=== PATIENT | male | born 1940 | race Caucasian/White ===

== ENCOUNTER 2018-09-24 18:41 | Observation (INO) ==
--- NOTE | 2018-09-24 19:20 | Emergency Department Note ---
Disposition Clinical Impression: Swelling of lower extremity, Shortness of breath Chest pain Qualifiers: Chest pain type: unspecified Qualified Code(s): R07.9 - Chest pain, unspecified Afib Qualifiers: Atrial fibrillation type: chronic Qualified Code(s): I48.2 - Chronic atrial fibrillation Disposition: Admitted As Inpatient Condition: Fair Referrals: Nayan Lawson DO [Primary Care Provider] - Forms: ED Satisfaction Letter Time of Disposition: 22:31 SOB HPI - General Chief Complaint: ED Shortness of Breath/Dyspnea Stated Complaint: Weakness Time Seen by Provider: 09/24/18 18:51 Source: EMS Limitations: no limitations - History of Present Illness Floyd is a 78 y/o male pmh of afib, HTN, and dementia who presented from home with weakness, nausea, and chest pain. This morning, began complaining of chest pain and SOB with standing. He was unable to describe chest pain, and does not remember having it but his states that he said he was having chest pain when he was walking. Admits to associated weakness in his legs, palpitations, and nausea throughout the day. Denies associated sweating, arm pain, syncope, dysuria. Over the past week he has had worsening of leg swelling bilaterally,right worst the left. He denies leg pain. His dementia has progressively worsened but no worsening of confusion acutely. He has been having episodes of confusion for the last couple of weeks. He has an appointment with the neurologist. Currently not complaining of any chest pain or SOB. No recent illnesses. Most of history was obtained from his . Patient was A&O x 2, oriented to self and place but unsure of month and why he is at the hospital. - Related Data Home oxygen amount: none Home Medications Medication Instructions Recorded Confirmed Diltiazem CD (24hr) [Cardizem CD] 120 mg PO DAILY 12/02/16 12/02/16 Finasteride [Proscar] 5 mg PO DAILY 12/02/16 12/02/16 Furosemide [Lasix] 40 mg PO HS 12/02/16 12/02/16 Lisinopril [Zestril] 10 mg PO DAILY 12/02/16 12/02/16 Warfarin Sodium [Coumadin] 6 mg PO SUMOTUWEFRSA 12/02/16 12/02/16 Warfarin [Coumadin] 3 mg PO 12/02/16 12/02/16 Allergies Allergy/AdvReac Type Severity Reaction Status Date / Time No Known Allergies Allergy Verified 03/07/18 16:09 All systems ED: reviewed and negative except as stated. Review of Systems: As Per HPI Constitutional: Reports: weakness. Denies: fever, chills Eyes: Denies: eye pain, eye discharge ENT ED: Denies: ear pain, throat pain Cardiovascular: Reports: chest pain, palpitations, dyspnea on exertion, edema. Denies: syncope Respiratory: Reports: dyspnea. Denies: wheezes Gastrointestinal: Reports: nausea. Denies: abdominal pain, vomiting Genitourinary: Denies: urgency, dysuria, frequency Integumentary: Denies: rash Neurological: Reports: confusion. Denies: numbness, paresthesias Past Medical History - Past Medical History Attestation: Yes The following information was validated with the patient. Source: old records reviewed, obtained from family Medical history: Reports: atrial fibrillation, cancer, DVT, hypertension, other Psychiatric history: Reports: no psych history - Social History Smoking Status: Never smoker Smokeless Tobacco Status: No Alcohol use: Reports: none Drug use: Reports: none Physical Exam Constitutional: Alert, in no acute distress, A&O x 2 Head: Normocephalic, atraumatic Heart: irregular rhythm, regular rate, no murmurs Lungs: Clear to auscultation, no wheezes, rales, or rhonchi Abdomen: Soft, nondistended, nontender, no guarding or rigidity. Extremities: bilateral non-pitting edema, venous status skin color changes of velasco of anterior compartment of legs bilaterally, radial pulse +2/4, capillary refill <2sec. Skin: Skin warm and dry, no lesions, no rashes, no jaundice Neurologic: Cranial nerves II through XII grossly intact, strength 5/5 in all extremities, staff nuclear weapons officer strength 5/5 bilaterally, answering most questions appropriately Psych: Cooperative with exam, good eye contact, cognitive function intact, speech clear, thought process logical, and goal directed - General Limitations: no limitations General appearance: alert Course Course Narrative: Patient is placed on cardiac monitoring which showed A. fib with rate control. EKG showed no ST elevation. Physical exam showed right calf 3 cm greater than left. Bilateral venous Dopplers were ordered. Bilateral lower extremity venous duplex appears to be negative fro DVT and SVT. Chest x-ray showed enlarged cardiac silhouette which could be due to cardiomegaly or pericardial effusion. Bedside US of heart showed small pericardial effusion, no tamponade. Due to episodes of confusion UA was ordered which was normal. BMP and CBC were normal. BNP was 263. d-dimer and troponin was negative. INR 2.6 and within theraputic range for afib on coumadin. Patient's vitals were normal throughout ED stay except for slightly elevated blood pressure. Patient was admitted to the hospital for ACS r/o. Patient was accepted by Dr. Gibbs. Vital Signs Temperature 98.5 F 09/24/18 19:11 Pulse Rate 70 09/24/18 19:11 Respiratory Rate 18 09/24/18 19:11 Blood Pressure 171/94 09/24/18 19:11 O2 Sat by Pulse Oximetry 97 09/24/18 19:11 Temperature 98.5 F 09/24/18 19:11 Pulse Rate 77 09/24/18 19:11 Respiratory Rate 18 09/24/18 19:11 Blood Pressure 171/94 09/24/18 19:11 O2 Sat by Pulse Oximetry 97 09/24/18 19:11 Oxygen Delivery Oxygen Delivery Room Air Shortness of Breath/Dyspnea - MDM Narrative Medical decision making narrative: Due to chest pain and shortness of breath with previous history of DVT, we will need to rule out NSTEMI, PE, DVT, afib RVR, CHF exacerbation. EKG did not show ST elevation. D-dimer was negative and bilateral doppler negative therefore less likely PE as patient has had no SOB requiring oxygen and heart rate has also been normal. Due to palpitations, nausea, and hx of afib RVR, patient might have been going in and out of a fib RVR earlier but is currently rate controlled. No cardiac tamponade see on US. Less likely due to CHF as patient's BNP was only 263. Unable to r/o ACS. - Medical Records Medical records reviewed: Yes I reviewed the patient's medical records. - Lab Data Lab results reviewed: Yes I reviewed the patient's lab results. Result diagrams: 09/24/18 19:30 09/24/18 19:30 Lab Results 09/24/18 09/24/18 09/24/18 Range/Units 19:30 19:30 19:31 WBC 6.4 (4.3-11.1) K/mcL RBC 4.53 (4.19-5.50) M/mcL Hgb 13.0 (12.9-16.9) g/dL Hct 39.7 (37.5-50.1) % MCV 87.6 (83.0-100.0) fL MCH 28.7 (28.0-33.3) pg MCHC 32.7 (31.6-35.5) g/dL RDW 14.2 (11.5-14.5) % Plt Count 176 (140-400) K/mcL MPV 9.4 (9.4-12.4) fL Immature Gran % 0.2 (0-4) % Seg Neutrophils % 69.1 % Lymphocytes % 19.1 % Monocytes % 11.0 % Eosinophils % 0.3 % Basophils % 0.3 % Neutrophils # 4.4 (1.6-8.9) K/mcL Lymphocytes # 1.2 (0.6-4.6) K/mcL Monocytes # 0.7 (0.0-1.3) K/mcL Eosinophils # 0.0 (0.0-0.6) K/mcL Basophils # 0.0 (0.0-0.2) K/mcL PT 28.8 H (9.4-12.1) Seconds INR 2.6 D-Dimer < 215 (0-500) ng/mLFEU Sodium 138 (136-145) mEq/L Potassium 4.3 (3.5-5.1) mEq/L Chloride 102 (98-107) mEq/L Carbon Dioxide 28 (23-29) mEq/L BUN 20 (8-23) mg/dL Creatinine 0.74 (0.70-1.30) mg/dL Est GFR ( Amer) > 60 (> 60) Est GFR (Non-Af Amer) > 60 (> 60) BUN/Creatinine Ratio 27 H (6-26) Glucose 105 (70-105) mg/dL Calculated Osmolality 289 (280-300) Calcium 9.8 (8.6-10.3) mg/dL Troponin I < 0.03 (< 0.04) ng/mL B-Natriuretic Peptide (Less than 100) pg/mL Urine Color (Yellow) Urine Clarity (Clear) Urine pH (5.0-8.0) pH Units Ur Specific [place] (1.010-1.025) Urine Protein (Neg-Trace) mg/dL Urine Glucose (UA) (Normal) mg/dL Urine Ketones (Negative) mg/dL Urine Blood (Negative) Urine Nitrite (Negative) Urine Bilirubin (Negative) Urine Urobilinogen (Normal) mg/dL Ur Leukocyte Esterase (Negative) Urine Microscopic RBC (0-3) per hpf Urine Microscopic WBC (0-3) per hpf Ur Squamous Epith Cells (None-Few) per lpf Urine Bacteria (None-Few) per hpf Hyaline Casts (None-Few) per lpf Ur Culture Indicated? (NO) 09/24/18 09/24/18 Range/Units 19:38 19:38 WBC (4.3-11.1) K/mcL RBC (4.19-5.50) M/mcL Hgb (12.9-16.9) g/dL Hct (37.5-50.1) % MCV (83.0-100.0) fL MCH (28.0-33.3) pg MCHC (31.6-35.5) g/dL RDW (11.5-14.5) % Plt Count (140-400) K/mcL MPV (9.4-12.4) fL Immature Gran % (0-4) % Seg Neutrophils % % Lymphocytes % % Monocytes % % Eosinophils % % Basophils % % Neutrophils # (1.6-8.9) K/mcL Lymphocytes # (0.6-4.6) K/mcL Monocytes # (0.0-1.3) K/mcL Eosinophils # (0.0-0.6) K/mcL Basophils # (0.0-0.2) K/mcL PT (9.4-12.1) Seconds INR D-Dimer (0-500) ng/mLFEU Sodium (136-145) mEq/L Potassium (3.5-5.1) mEq/L Chloride (98-107) mEq/L Carbon Dioxide (23-29) mEq/L BUN (8-23) mg/dL Creatinine (0.70-1.30) mg/dL Est GFR ( Amer) (> 60) Est GFR (Non-Af Amer) (> 60) BUN/Creatinine Ratio (6-26) Glucose (70-105) mg/dL Calculated Osmolality (280-300) Calcium (8.6-10.3) mg/dL Troponin I (< 0.04) ng/mL B-Natriuretic Peptide 263 H (Less than 100) pg/mL Urine Color Yellow (Yellow) Urine Clarity Clear (Clear) Urine pH 6.0 (5.0-8.0) pH Units Ur Specific [place] 1.007 L (1.010-1.025) Urine Protein Negative (Neg-Trace) mg/dL Urine Glucose (UA) Normal (Normal) mg/dL Urine Ketones Negative (Negative) mg/dL Urine Blood Trace H (Negative) Urine Nitrite Negative (Negative) Urine Bilirubin Negative (Negative) Urine Urobilinogen Normal (Normal) mg/dL Ur Leukocyte Esterase Negative (Negative) Urine Microscopic RBC 0-3 (0-3) per hpf Urine Microscopic WBC 0-3 (0-3) per hpf Ur Squamous Epith Cells Moderate H (None-Few) per lpf Urine Bacteria None Seen (None-Few) per hpf Hyaline Casts None Seen (None-Few) per lpf Ur Culture Indicated? NO (NO) - Radiology Data Radiology results reviewed: Yes I reviewed the patient's radiology results. - EKG Data EKG attestation: Yes I reviewed and interpreted this EKG. EKG results narrative: EKG showed afib with a rate of 81bpm, QRS 0.122s, QTc 464, IN 0.078s. No ST elevation present.
[2018-09-24 19:42] LABS: Basophils % 0.3 %; Eosinophils % 0.3 %; Hematocrit 39.7 % (37.5-50.1); Immature Granulocytes % 0.2 % (0-4); Lymphocytes # 1.2 K/mcL (0.6-4.6); Lymphocytes % 19.1 %; Mean Corpuscular HGB Conc 32.7 g/dL (31.6-35.5); Mean Corpuscular Hemoglobin 28.7 pg (28.0-33.3); Mean Corpuscular Volume 87.6 fL (83.0-100.0); Mean Platelet Volume 9.4 fL (9.4-12.4); Monocytes # 0.7 K/mcL (0.0-1.3); Neutrophils # 4.4 K/mcL (1.6-8.9); Platelet Count 176 K/mcL (140-400); Red Blood Count 4.53 M/mcL (4.19-5.50); Red Cell Distribution Width 14.2 % (11.5-14.5); Segmented Neutrophils % 69.1 %
[2018-09-24 19:47] LABS: Bilirubin,Urine Negative (Negative); Blood,Urine Trace (Negative); Clarity,Urine Clear (Clear); Color,Urine Yellow (Yellow); Glucose,Urine (UA) Normal (Normal); Ketones,Urine Negative (Negative); Leukocyte Esterase,Urine Negative (Negative); Nitrite,Urine Negative (Negative); Protein,Urine Negative (Neg-Trace); Specific Gravity,Urine 1.007 (1.010-1.025); Urobilinogen,Urine Normal (Normal)
[2018-09-24 19:50] LABS: INR 2.6; Prothrombin Time 28.8 Seconds (9.4-12.1)
[2018-09-24 19:50] LABS: Bacteria,Urine None Seen per hpf (None-Few); Hyaline Casts,Urine None Seen per lpf (None-Few); RBC,Urine 0-3 per hpf (0-3); Squamous Epithelial Cell,Urine Moderate per lpf (None-Few); WBC,Urine 0-3 per hpf (0-3)
[2018-09-24 20:02] LABS: BUN/Creatinine Ratio 27 (6-26); Blood Urea Nitrogen 20 mg/dL (8-23); Calcium 9.8 mg/dL (8.6-10.3); Carbon Dioxide 28 mEq/L (23-29); Chloride 102 mEq/L (98-107); Glucose 105 mg/dL (70-105); Osmolality,Calculated 289 (280-300); Potassium 4.3 mEq/L (3.5-5.1); Sodium 138 mEq/L (136-145); eGFR For Non-African Americans > 60 (> 60)
[2018-09-24 20:03] LABS: Troponin I < 0.03 ng/mL (< 0.04)
--- NOTE | 2018-09-24 20:04 | Emergency Department Note ---
Disposition Clinical Impression: Swelling of lower extremity Chest pain Qualifiers: Chest pain type: unspecified Qualified Code(s): R07.9 - Chest pain, unspecified Afib Qualifiers: Atrial fibrillation type: chronic Qualified Code(s): I48.2 - Chronic atrial fibrillation Disposition: Admitted As Inpatient Condition: Fair Referrals: Nayan Lawson DO [Primary Care Provider] - Forms: ED Satisfaction Letter General Adult HPI - General Chief complaint: ED Shortness of Breath/Dyspnea Stated complaint: Weakness Time Seen by Provider: 09/24/18 18:51 Source: EMS Limitations: no limitations - History of Present Illness Pain Scale: 0 - Related Data Home Medications Medication Instructions Recorded Confirmed Diltiazem CD (24hr) [Cardizem CD] 120 mg PO DAILY 12/02/16 12/02/16 Finasteride [Proscar] 5 mg PO DAILY 12/02/16 12/02/16 Furosemide [Lasix] 40 mg PO HS 12/02/16 12/02/16 Lisinopril [Zestril] 10 mg PO DAILY 12/02/16 12/02/16 Warfarin Sodium [Coumadin] 6 mg PO SUMOTUWEFRSA 12/02/16 12/02/16 Warfarin [Coumadin] 3 mg PO TH 12/02/16 12/02/16 Allergies Allergy/AdvReac Type Severity Reaction Status Date / Time No Known Allergies Allergy Verified 03/07/18 16:09 Past Medical History - Past Medical History Medical history: Reports: atrial fibrillation, cancer, DVT, hypertension, other Psychiatric history: Reports: no psych history - Social History Smoking Status: Never smoker Smokeless Tobacco Status: No Alcohol use: Reports: none Drug use: Reports: none Physical Exam - General Limitations: no limitations General appearance: alert Course Vital Signs Temperature 98.5 F 09/24/18 19:11 Pulse Rate 70 09/24/18 19:11 Respiratory Rate 18 09/24/18 19:11 Blood Pressure 171/94 09/24/18 19:11 O2 Sat by Pulse Oximetry 97 09/24/18 19:11 Temperature 98.5 F 09/24/18 19:11 Pulse Rate 77 09/24/18 19:11 Respiratory Rate 18 09/24/18 19:11 Blood Pressure 171/94 09/24/18 19:11 O2 Sat by Pulse Oximetry 97 09/24/18 19:11 Oxygen Delivery Oxygen Delivery Room Air Medical Decision Making - Lab Data Result diagrams: 09/24/18 19:30 09/24/18 19:30 Lab Results 09/24/18 09/24/18 09/24/18 Range/Units 19:30 19:30 19:31 WBC 6.4 (4.3-11.1) K/mcL RBC 4.53 (4.19-5.50) M/mcL Hgb 13.0 (12.9-16.9) g/dL Hct 39.7 (37.5-50.1) % MCV 87.6 (83.0-100.0) fL MCH 28.7 (28.0-33.3) pg MCHC 32.7 (31.6-35.5) g/dL RDW 14.2 (11.5-14.5) % Plt Count 176 (140-400) K/mcL MPV 9.4 (9.4-12.4) fL Immature Gran % 0.2 (0-4) % Seg Neutrophils % 69.1 % Lymphocytes % 19.1 % Monocytes % 11.0 % Eosinophils % 0.3 % Basophils % 0.3 % Neutrophils # 4.4 (1.6-8.9) K/mcL Lymphocytes # 1.2 (0.6-4.6) K/mcL Monocytes # 0.7 (0.0-1.3) K/mcL Eosinophils # 0.0 (0.0-0.6) K/mcL Basophils # 0.0 (0.0-0.2) K/mcL PT 28.8 H (9.4-12.1) Seconds INR 2.6 D-Dimer < 215 (0-500) ng/mLFEU Sodium 138 (136-145) mEq/L Potassium 4.3 (3.5-5.1) mEq/L Chloride 102 (98-107) mEq/L Carbon Dioxide 28 (23-29) mEq/L BUN 20 (8-23) mg/dL Creatinine 0.74 (0.70-1.30) mg/dL Est GFR ( Amer) > 60 (> 60) Est GFR (Non-Af Amer) > 60 (> 60) BUN/Creatinine Ratio 27 H (6-26) Glucose 105 (70-105) mg/dL Calculated Osmolality 289 (280-300) Calcium 9.8 (8.6-10.3) mg/dL Troponin I < 0.03 (< 0.04) ng/mL B-Natriuretic Peptide (Less than 100) pg/mL Urine Color (Yellow) Urine Clarity (Clear) Urine pH (5.0-8.0) pH Units Ur Specific [place] (1.010-1.025) Urine Protein (Neg-Trace) mg/dL Urine Glucose (UA) (Normal) mg/dL Urine Ketones (Negative) mg/dL Urine Blood (Negative) Urine Nitrite (Negative) Urine Bilirubin (Negative) Urine Urobilinogen (Normal) mg/dL Ur Leukocyte Esterase (Negative) Urine Microscopic RBC (0-3) per hpf Urine Microscopic WBC (0-3) per hpf Ur Squamous Epith Cells (None-Few) per lpf Urine Bacteria (None-Few) per hpf Hyaline Casts (None-Few) per lpf Ur Culture Indicated? (NO) 09/24/18 09/24/18 Range/Units 19:38 19:38 WBC (4.3-11.1) K/mcL RBC (4.19-5.50) M/mcL Hgb (12.9-16.9) g/dL Hct (37.5-50.1) % MCV (83.0-100.0) fL MCH (28.0-33.3) pg MCHC (31.6-35.5) g/dL RDW (11.5-14.5) % Plt Count (140-400) K/mcL MPV (9.4-12.4) fL Immature Gran % (0-4) % Seg Neutrophils % % Lymphocytes % % Monocytes % % Eosinophils % % Basophils % % Neutrophils # (1.6-8.9) K/mcL Lymphocytes # (0.6-4.6) K/mcL Monocytes # (0.0-1.3) K/mcL Eosinophils # (0.0-0.6) K/mcL Basophils # (0.0-0.2) K/mcL PT (9.4-12.1) Seconds INR D-Dimer (0-500) ng/mLFEU Sodium (136-145) mEq/L Potassium (3.5-5.1) mEq/L Chloride (98-107) mEq/L Carbon Dioxide (23-29) mEq/L BUN (8-23) mg/dL Creatinine (0.70-1.30) mg/dL Est GFR ( Amer) (> 60) Est GFR (Non-Af Amer) (> 60) BUN/Creatinine Ratio (6-26) Glucose (70-105) mg/dL Calculated Osmolality (280-300) Calcium (8.6-10.3) mg/dL Troponin I (< 0.04) ng/mL B-Natriuretic Peptide 263 H (Less than 100) pg/mL Urine Color Yellow (Yellow) Urine Clarity Clear (Clear) Urine pH 6.0 (5.0-8.0) pH Units Ur Specific [place] 1.007 L (1.010-1.025) Urine Protein Negative (Neg-Trace) mg/dL Urine Glucose (UA) Normal (Normal) mg/dL Urine Ketones Negative (Negative) mg/dL Urine Blood Trace H (Negative) Urine Nitrite Negative (Negative) Urine Bilirubin Negative (Negative) Urine Urobilinogen Normal (Normal) mg/dL Ur Leukocyte Esterase Negative (Negative) Urine Microscopic RBC 0-3 (0-3) per hpf Urine Microscopic WBC 0-3 (0-3) per hpf Ur Squamous Epith Cells Moderate H (None-Few) per lpf Urine Bacteria None Seen (None-Few) per hpf Hyaline Casts None Seen (None-Few) per lpf Ur Culture Indicated? NO (NO) Attestation Statement - Attestation Attestation: I examined this patient and my medical decision-making was reviewed with the SQU[employer] DANCE CALLER/PA/Advanced Practice Nurse/Resident Physician. I agree with the documented findings, disposition and treatment plan as described except to the extent set forth below. Patient presents for primary complaints of shortness of breath and weakness. This began today. Patient does have bilateral lower extremity swelling worse on the right which is chronic for both legs are more swollen than they usually are. He did have chest pain earlier but no chest pain at the present time. I did review the EKG which shows atrial fibrillation with a rate of 81 bpm and a wavy baseline/artifact but no acute ischemic change 2003 I did review the chest x-ray results and the x-ray read as showing a large heart however the BNP is not significantly elevated so for that reason I did a bedside ultrasound and did not see a small pericardial effusion but not pericardial tympanotomy. Formal echocardiogram can be done tomorrow. The patient currently does not have any dyspnea or any chest pain. Will be admitted to the hospital. D-dimer was negative. Initial troponin was negative.
[2018-09-24 20:36] LABS: D-Dimer < 215 ng/mLFEU (0-500)
[2018-09-24] MEDS: Aspirin Enteric Coated 81 MG Tablet PO SCH (22:38)
[2018-09-25] MEDS ORDERED: Naloxone 0.4 MG/ML INJ IVP PRN (00:05)
[2018-09-25] MEDS ORDERED: Nitroglycerin 0.4 MG TAB.SUBL SL PRN (00:07)
[2018-09-25 05:05] LABS: Hematocrit 39.5 % (37.5-50.1); Hemoglobin 12.7 g/dL (12.9-16.9); Mean Corpuscular HGB Conc 32.2 g/dL (31.6-35.5); Mean Corpuscular Hemoglobin 28.3 pg (28.0-33.3); Mean Corpuscular Volume 88.2 fL (83.0-100.0); Mean Platelet Volume 10.6 fL (9.4-12.4); Platelet Count 178 K/mcL (140-400); Red Blood Count 4.48 M/mcL (4.19-5.50)
[2018-09-25 05:20] LABS: BUN/Creatinine Ratio 25 (6-26); Blood Urea Nitrogen 18 mg/dL (8-23); Calcium 9.8 mg/dL (8.6-10.3); Carbon Dioxide 28 mEq/L (23-29); Chloride 105 mEq/L (98-107); Glucose 100 mg/dL (70-105); Osmolality,Calculated 290 (280-300); Potassium 3.7 mEq/L (3.5-5.1); Sodium 139 mEq/L (136-145); eGFR For Non-African Americans > 60 (> 60)
[2018-09-25 05:21] LABS: Troponin I < 0.03 ng/mL (< 0.04)
[2018-09-25] MEDS: Regadenoson 0.4 MG/5 ML SYRINGE IVP ONE ×2 (07:44→09:18)
[2018-09-25] MEDS ORDERED: Brinzolamide 1% 10 ML BOTTLE BOTH EYES SCH (09:00)
[2018-09-25] MEDS ORDERED: Finasteride 5 MG TABLET PO SCH (09:00)
[2018-09-25] MEDS ORDERED: Diltiazem CD (24hr) 120 MG CAPSULE PO SCH (09:00)
--- NOTE | 2018-09-25 09:17 | Internal Med History&Physical ---
Date of Encounter: 09/25/18 Time of Encounter: 03:00 Internal Medicine - H&P: HPI Chief complaint: Chest Pain/Weakness History of present illness: Mr. Barrientos is a 78 year old male with a past medical history of atrial fibrillation, hypertension and dementia who presented from home with a chief complaint of lower extremity weakness and chest pain. At the time of my as sessment patient was a poor historian and therefore much of the history was obtained from previous records. Per report, patient was unable to describe his chest pain however his stated that it typically occurs with ambulation. He is also reporting lower extremity weakness which has been ongoing since last year. Patient reportedly has been having episodes of confusion for the past couple weeks and has an appointment with neurology. Patient does have bilateral lower extremity swelling worse on the right which is chronic however, legs appear to be more swollen than usual. D-dimer was negative. Initial labs including troponin were unremarkable as well as EKG. Chest x-ray showed an en larged heart. No evidence of pericardial effusion on bedside ultrasound. The patient currently does not have any dyspnea or any chest pain. Past Med Surg Social Fam HX - Past Medical History Medical history: atrial fibrillation, cancer, DVT, hypertension, other Additional medical history: facial cancer (skin) Psychiatric history: no psych history - Past Surgical History Additional surgical history: prostate sx, wisdom teeth - Social History Smoking Status: Never smoker Smokeless Tobacco Status: No Alcohol use: none Drug use: none - Family History Mother Hx Family Cardiac Disorders: Yes (HTN) Internal Medicine - H&P: Meds Diltiazem CD (24hr) [Cardizem CD] 120 mg PO DAILY 12/02/16 [History] Finasteride [Proscar] 5 mg PO DAILY 12/02/16 [History] Furosemide [Lasix] 40 mg PO HS 12/02/16 [History] Lisinopril [Zestril] 10 mg PO DAILY 12/02/16 [History] Warfarin Sodium [Coumadin] 6 mg PO SUMOTUTHFRSA 12/02/16 [History] Warfarin [Coumadin] 3 mg PO WE 12/02/16 [History] Brinzolamide/Brimonidine Tart [Simbrinza 1%-0.2% Eye Drops] 1 drop BOTH EYES BID 09/24/18 [History] Donepezil [Aricept] 10 mg PO HS 09/24/18 [History] Travoprost [Travatan Z] 1 drop BOTH EYES QPM 09/24/18 [History] Aspirin Enteric Coated [Aspirin EC] 81 mg PO DAILY 30 Days #30 tablet. 09/25/18 [Rx] Allergy/AdvReac Type Severity Reaction Status Date / Time No Known Allergies Allergy Verified 03/07/18 16:09 All Systems PM: A 10-system review of systems was performed and is negative for pertinent findings except as documented above in the HPI. - Constitutional Constitutional: no chills, no fever(s), no night sweats - EENT Eyes: no change in vision, no discharge, no pain, no photophobia Ears: no ear discharge, no ear pain, no tinnitus Nose, mouth and throat: no dysphagia, no nasal discharge, no neck pain, no sore throat - Cardiovascular Cardiovascular ROS IM: no chest pain, no diaphoresis, no dyspnea, no lighth eadedness, no palpitations, no syncope - Respiratory Respiratory: no cough, no dyspnea, no wheezing, no excessive phlegm production - Gastrointestinal Gastrointestinal: no abdominal pain, no diarrhea, no hematemesis, no he matochezia, no melena, no nausea, no vomiting - Musculoskeletal Musculoskeletal ROS IM: no numbness, no tingling - Integumentary Integumentary IM: no rash, no unusual bruising - Neurological Neurological ROS: no confusion, no convulsions, no focal weakness, no numbness, no tingling, no tremor(s) - Hematologic/Lymphatic Hematologic/Lymphatic: no easy bruising - Constitutional Vitals: Temp Pulse Resp BP Pulse Ox 98.0 F 82 16 158/92 95 09/25/18 06:55 09/25/18 06:55 09/25/18 06:55 09/25/18 06:55 09/25/18 06:55 Exam: General: Alert and oriented 2 lying in bed in no acute distress Skin:Normal color, no rash, no lesions. HEENT:EOM, pupils equal, round and reactive. Cardiovascular:Normal S1 & S2, no rubs, murmurs or gallops. No JVD. Pulse re gular. Lungs:Normal breath sounds, no wheezes or crackles. Abdomen:Soft, non-tender, no rigidity. Extremities: Bilateral 1-2+ pitting edema up to the midshin. Right lower extremity greater in size and left. Neurological:Normal cognition and motor skills. Pulses:Carotid and radial pulses normal +2. Rest of the physical exam is non contributory Internal Med - H&P Results - Labs CBC & Chem 7: 09/25/18 04:15 09/25/18 04:15 Labs: Short CBC 09/24/18 09/25/18 Range/Units 19:30 04:15 WBC 6.4 5.3 (4.3-11.1) K/mcL Hgb 13.0 12.7 L (12.9-16.9) g/dL Hct 39.7 39.5 (37.5-50.1) % Plt Count 176 178 (140-400) K/mcL Neutrophils # 4.4 (1.6-8.9) K/mcL BMP 09/24/18 09/25/18 19:30 04:15 Sodium 138 139 Potassium 4.3 3.7 Chloride 102 105 Carbon Dioxide 28 28 BUN 20 18 Creatinine 0.74 0.71 Glucose 105 100 Calcium 9.8 9.8 Cardiac Enzymes 09/24/18 09/25/18 09/25/18 Range/Units 19:30 01:01 04:15 Troponin I < 0.03 < 0.03 < 0.03 (< 0.04) ng/mL Urine 09/24/18 Range/Units 19:38 Urine Color Yellow (Yellow) Urine Clarity Clear (Clear) Urine pH 6.0 (5.0-8.0) pH Units Ur Specific [place] 1.007 L (1.010-1.025) Urine Protein Negative (Neg-Trace) mg/dL Urine Glucose (UA) Normal (Normal) mg/dL - Impressions ITS Impressions Chest X-Ray 09/24/18 19:52 IMPRESSION: Enlarged cardiac silhouette which could be due to cardiomegaly or pericardial effusion. D/ / Dimitry Harrington MD / Dimitry Harrington MD Interpreting Provider: Dimitry Harrington MD - Assessment and plan (1) Weakness Status: Acute Assessment and plan: Patient reports several month history of weakness involving his lower extremities bilaterally. No evidence of focal findings on physical exam. Lower extremity muscle strength 4 out of 5 bilaterally. Likely secondary to deconditioning -PT OT (2) Chest pain Status: Acute Assessment and plan: Patient presents with chest pain on exertion. Patient is a poor historian and therefore history of patient's chest pain was difficult to obtain. Initial troponin and EKG were unremarkable. Patient has a history of atrial fibrillation and hypertension. Echo performed in 2016 showed ejection fraction of 55-60% with mild concentric left ventricular hypertrophy and indeterminate diastolic function. No active chest pain at this time. -We will trend troponin. -Obtain echocardiogram -Stress test in the morning - Qualifiers: Chest pain type: unspecified Qualified Code(s): R07.9 - Chest pain, unspecified (3) Swelling of lower extremity Status: Acute Assessment and plan: Bilateral lower extremity edema with 1-2+ edema bilaterally. Right lower ex tremity greater in size and left. Patient states that this is chronic. Patient had a negative d-dimer on labs. -We will obtain echocardiogram (4) Afib Status: Acute Assessment and plan: History of atrial fibrillation rate controlled on anticoagulation. Rate is controlled. INR within therapeutic range. -Continue warfarin and diltiazem Qualifiers: Atrial fibrillation type: chronic Qualified Code(s): I48.2 - Chronic atrial fibrillation (5) DVT prophylaxis Status: Acute Assessment and plan: Patient currently on warfarin - Time Spent With Patient Total time spent is greater than 50% in coordination of care (as documented) at patient's floor/unit and/or counseling patient:
[2018-09-25] MEDS ORDERED: *HR* LORazepam 2 MG/ML VIAL IVP ONE (09:44)
[2018-09-25] MEDS: Aspirin Enteric Coated 81 MG Tablet PO SCH (10:57)
[2018-09-25 11:01] LABS: Chol/HDL Ratio 2.5 (0-4.9); Cholesterol 149 mg/dL (< 200); HDL Cholesterol 60 mg/dL (40-59); LDL Cholesterol,Calculated 79 mg/dL (0-99); Triglycerides 49 mg/dL (< 150)
[2018-09-25 11:19] VITALS: BP 149/76
--- NOTE | 2018-09-25 11:42 | Internal Med Progress Note ---
Date of Encounter: 09/25/18 Time of Encounter: 10:00 - Subjective Interval history: Patient is A and O 1. Patient is accompanied by his . says his level of confusion is around baseline. Patient currently denies any chest pain, shortness of breath, weakness, nausea, vomiting, abdominal pain, palpitations, numbness or tingling. He also tests that the swelling in his legs has gone down a little compared to yesterday. - Constitutional Vitals: Temp Pulse Resp BP Pulse Ox 97.4 F L 66 16 149/76 96 09/25/18 11:18 09/25/18 11:18 09/25/18 11:18 09/25/18 11:18 09/25/18 11:18 General appearance: Present: A&O X 1, no acute distress, answers questions appropriately - Respiratory Respiratory exam: Present: CTAB. Absent: accessory muscle use, rales, rhonchi, wheezes - Cardiovascular Cardiovascular exam: Present: RRR, +S1, +S2. Absent: diastolic murmur, gallop, rubs, systolic murmur - GI/Abdominal GI/Abdominal exam: Present: normal bowel sounds, soft, no peritoneal signs. A bsent: distended, tenderness - Extremities Exam Extremities exam: Present: normal capillary refill, pedal edema (+2 B/L LE pitting edema), warm, radial pulses palpable and symmetrical. Absent: calf tenderness, cyanotic, tenderness Internal Medicine: Result - Labs CBC & Chem 7: 09/25/18 04:15 09/25/18 04:15 Labs: Short CBC 09/24/18 09/25/18 Range/Units 19:30 04:15 WBC 6.4 5.3 (4.3-11.1) K/mcL Hgb 13.0 12.7 L (12.9-16.9) g/dL Hct 39.7 39.5 (37.5-50.1) % Plt Count 176 178 (140-400) K/mcL Neutrophils # 4.4 (1.6-8.9) K/mcL BMP 09/24/18 09/25/18 19:30 04:15 Sodium 138 139 Potassium 4.3 3.7 Chloride 102 105 Carbon Dioxide 28 28 BUN 20 18 Creatinine 0.74 0.71 Glucose 105 100 Calcium 9.8 9.8 Cardiac Enzymes 09/24/18 09/25/18 09/25/18 Range/Units 19:30 01:01 04:15 Troponin I < 0.03 < 0.03 < 0.03 (< 0.04) ng/mL Urine 09/24/18 Range/Units 19:38 Urine Color Yellow (Yellow) Urine Clarity Clear (Clear) Urine pH 6.0 (5.0-8.0) pH Units Ur Specific [place] 1.007 L (1.010-1.025) Urine Protein Negative (Neg-Trace) mg/dL Urine Glucose (UA) Normal (Normal) mg/dL - ABG Interpretation ABG results: PT/INR, D-dimer PT 28.8 Seconds (9.4-12.1) H 09/24/18 19:31 D-Dimer < 215 ng/mLFEU (0-500) 09/24/18 19:31 - Impressions Impressions Chest X-Ray 09/24/18 19:52 IMPRESSION: Enlarged cardiac silhouette which could be due to cardiomegaly or pericardial effusion. D/ / Dimitry Harrington MD / Dimitry Harrington MD Interpreting Provider: Dimitry Harrington MD Echocardiogram 09/25/18 06:02 Impressions: LVEF 55%. Normal LV chamber size, wall thickness and function. Indeterminate diastolic function. Normal right ventricular structure and function. Severely bi-atrial enlargement. Mild aortic regurgitation. Borderline mild pulmonary hypertension. Estimated RVSP is 37 mmHg. Left Ventricular Wall Motion: Rest Echo Findings All wall segments showed normal motion. Findings: Study Quality * Technically sub-optimal due to poor echocardiographic windows. ECG Findings * Atrial fibrillation. Left Ventricle * LVEF 55%. * Normal LV chamber size, wall thickness and function. * Indeterminate diastolic function. Right Ventricle * Normal right ventricular structure and function. Left Atrium * Severely dilated left atrium. Right Atrium * Severely dilated right atrium. Aortic Valve * Aortic valve not well visualized. * Mild aortic regurgitation. * No aortic stenosis. Mitral Valve * Normal mitral valve structure and function. * No mitral stenosis. * Trace mitral regurgitation. Tricuspid Valve * Normal tricuspid valve structure and function. * Trace tricuspid regurgitation. * Borderline mild pulmonary hypertension. * Estimated RVSP is 37 mmHg. * Estimated RA pressure is presumed to be at least 5 mmHg. IVC not well visualized. Pulmonic Valve * Pulmonic valve not well visualized. Aorta * Normally sized aortic root. Pericardium * The pericardium appears normal. IVC * The IVC is not well evaluated. Pulmonary Artery * Pulmonary artery not well visualized. Consult Discharge Plan - Plan Referrals: Nayan Lawson DO [Primary Care Provider] -
--- NOTE | 2018-09-25 11:55 | Discharge Summary ---
<MiryamNikolai reyes - Last Filed: 09/25/18 11:47> Orders not resulted at time of discharge: Pending orders 09/25/18 06:01 NM eliza perf SPECT multi [NM] Routine Date of Encounter: 09/25/18 Time of Encounter: 10:00 - Discharge Diagnosis (1) Chest pain Priority: Primary Status: Acute Qualifiers: Chest pain type: unspecified Qualified Code(s): R07.9 - Chest pain, unspecified (2) Swelling of lower extremity Priority: Primary Status: Acute (3) Afib Priority: Primary Status: Acute Qualifiers: Atrial fibrillation type: chronic Qualified Code(s): I48.2 - Chronic atrial fibrillation (4) Weakness Priority: Secondary Status: Acute Hospital course: Mr. Barrientos is a 78 year old male with a past medical history of HIV fibrillation, hypertension, and dementia that presented on 09/24/18 for chest pain and weakness. Patient is a poor historian and much of his history was obtained from work records and his . He has issues of lower extremity edema. He has been getting episodes of slightly increased confusion for the past couple weeks. He does have an upcoming appointment with neurology. Patient is D-dimer test was negative. Troponins were negative x 2. HEART score of 5. His EKG was unremarkable. Chest x-ray showed an enlarged heart. No evidence of pericardial effusion on bedside ultrasound. His echocardiogram showed an ejection fraction of 55%. Also showed severely biatrial enlargement and mild aortic regurgitation. He does have borderline mild pulmonary hypertension. His renal function was normal. Hemoglobin was normal. White blood cell count was not within normal range. Patient is afebrile. His UA showed no signs of infection. A nuclear stress test was ordered which showed H her fibrillation with a right bundle branch block and nonspecific ST changes throughout the study. Pharmacologic ECG was nondiagnostic for ischemia. Patient had no chest pain during the stress test. Patient's heart rate has been rate controlled with diltiazem. He is on warfarin for his atrial fibrillation and his INR is within therapeutic range. His blood pressure is treated with lisinopril. He was put on Lasix for his lower extremity edema which seemed to improve (108 kg down to 106 kg weight). Patient was also put on baby aspirin for risk factors for coronary artery disease. When seen today patient was a and O 1, for which his says this is his baseline. He denied any chest pain, shortness of breath, weakness, nausea, vomiting, abdominal pain, palpitations, numbness or tingling. Patient will be discharged today. He will be sent home with his . Also discharge patient with month supply of aspirin which is recommended that he take due to his risk factors for CAD. Patient will need to follow-up with PCP within one week. Warned patient that if he expenses any chest pain, dizziness, lightheadedness, numbness or tingling, shortness of breath, increase in lower extremity swelling, or shortness of breath while laying down to report immediately to the ER. - Time Spent with Patient Total time spent providing and/or coordinating discharge services: Less than 30 minutes - Discharge Medications Prescriptions: RX: Aspirin Enteric Coated [Aspirin EC] 81 mg PO DAILY 30 Days #30 tablet.dr Denny Medications: RX: Diltiazem CD (24hr) [Cardizem CD] 120 mg PO DAILY 12/02/16 [History] RX: Finasteride [Proscar] 5 mg PO DAILY 12/02/16 [History] RX: Furosemide [Lasix] 40 mg PO HS 12/02/16 [History] RX: Lisinopril [Zestril] 10 mg PO DAILY 12/02/16 [History] RX: Warfarin Sodium [Coumadin] 6 mg PO SUMOTUTHFRSA 12/02/16 [History] RX: Warfarin [Coumadin] 3 mg PO WE 12/02/16 [History] RX: Brinzolamide/Brimonidine Tart [Simbrinza 1%-0.2% Eye Drops] 1 drop BOTH EYES BID 09/24/18 [History] RX: Donepezil [Aricept] 10 mg PO HS 09/24/18 [History] RX: Travoprost [Travatan Z] 1 drop BOTH EYES QPM 09/24/18 [History] RX: Aspirin Enteric Coated [Aspirin EC] 81 mg PO DAILY 30 Days #30 tablet. 09/25/18 [Rx] Allergies/Adverse Reactions: Allergy/AdvReac Type Severity Reaction Status Date / Time No Known Allergies Allergy Verified 03/07/18 16:09 Date of admission: 09/24/18 23:05 Primary care physician: Napoleon Lawson DO Consults: 09/25/18 09:15 Consult to Physical Therapy [CONS] Routine Comment: Evaluate, develop and implement POC Reason for Consult: Patient reports increased weakness in his lower extremities has been ongoing since last year. He does not a history of dementia. Does patient have active BEDREST order?: No Is patient medically & hemodynamically stable?: No Patient assessed for mobility or mobilized this visit?: No Discharging clinician: Nikolai March Anticipated date of discharge: 09/25/18 - Constitutional Vitals: Temp Pulse Resp BP Pulse Ox 97.4 F L 66 16 149/76 96 09/25/18 11:18 09/25/18 11:18 09/25/18 11:18 09/25/18 11:18 09/25/18 11:18 General appearance: Present: A&O X 1, no acute distress, answers questions appropriately - Respiratory Respiratory exam: Present: CTAB. Absent: accessory muscle use, rales, rhonchi, wheezes - Cardiovascular Cardiovascular exam: Present: irregular rhythm, +S1, +S2. Absent: diastolic murmur, gallop, rubs, systolic murmur - GI/Abdominal GI/Abdominal exam: Present: normal bowel sounds, soft, no peritoneal signs. Absent: distended, tenderness - Extremities Exam Extremities exam: Present: normal capillary refill, pedal edema (+2 B/L pitting edema), warm, radial pulses palpable and symmetrical. Absent: calf tenderness, cyanotic, tenderness - Patient Status Disposition: Home, Self-Care Condition: Fair Functional capacity at discharge: independent ambulation Overall status at discharge: patient is back to baseline - Discharge Instructions Instructions: Dementia (GEN) Follow Up With: Nayan Lawson DO [Primary Care Provider] - 10/07/18 9:30 am - Diet and Activity Activity: resume usual activities as tolerated Diet: other (Cardiac diet. ) <Jackie Velazquez - Last Filed: 09/25/18 15:22> Orders not resulted at time of discharge: Pending orders 09/25/18 06:01 NM eliza perf SPECT multi [NM] Routine Date of Encounter: 09/25/18 Hospital course: Mr. Barrientos is a 78 year old male - Time Spent with Patient Total time spent providing and/or coordinating discharge services: Date of admission: 09/24/18 23:05 Primary care physician: Napoleon Lawson DO Consults: 09/25/18 09:15 Consult to Physical Therapy [CONS] Routine Comment: Evaluate, develop and implement POC Reason for Consult: Patient reports increased weakness in his lower extremities has been ongoing since last year. He does not a history of dementia. Does patient have active BEDREST order?: No Is patient medically & hemodynamically stable?: No Patient assessed for mobility or mobilized this visit?: No - Constitutional Vitals: Temp Pulse Resp BP Pulse Ox 97.4 F L 66 16 149/76 96 09/25/18 11:18 09/25/18 11:18 09/25/18 11:18 09/25/18 11:18 09/25/18 11:18 - Attending Attestation I examined this patient and my medical decision-making was reviewed with the Resident Physician Dr. March. I agree with the documented findings, disposition and treatment plan as described except to the extent set forth below. Mr. Barrientos is a 78 year old male with a past medical history of atrial fibrillation, hypertension and dementia who presented from home with a chief complaint of lower extremity weakness and chest pain. Initial labs including troponin were unremarkable as well as EKG. 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 His serial troponin came back is negative. His echocardiogram showed preserved LVEF at 55% and indeterminate diastolic function. His nuclear stress test came back is negative for ischemia/infarction. So will discharge him home in a stable condition today. Gen: A, A, O to self and pleasantly demented Chest: Diminished BS b/l no crackles no rales Heart: S1S2+ Afib, No murmurs
[2018-09-25] MEDS ORDERED: *HR* Warfarin 3 MG TABLET PO SCH (18:00)
[2018-09-25] MEDS ORDERED: Latanoprost 2.5 ML BOTTLE BOTH EYES SCH (18:00)
[2018-09-25] MEDS ORDERED: Furosemide 40 MG TABLET PO SCH (21:00)
[2018-09-30] MEDS ORDERED: *HR* Warfarin 3 MG TABLET PO SCH (18:00)
== END 2018-09-25 15:22 | disposition home or self-care (01) ==
LOC: 3BNU 18:41 → EMEROOARM 18:41 → SUATTDRO 23:05 → 3BNU 23:37
PROVIDERS: ADMIT Internal Medicine; ATTEND Family Medicine

== ENCOUNTER 2020-12-22 13:22 | Observation (INO) ==
[2020-12-22 14:16] LABS: Hematocrit 41.7 % (37.5-50.1); Hemoglobin 13.2 g/dL (12.9-16.9); Mean Corpuscular HGB Conc 31.7 g/dL (31.6-35.5); Mean Corpuscular Hemoglobin 28.9 pg (28.0-33.3); Mean Corpuscular Volume 91.2 fL (83.0-100.0); Mean Platelet Volume 10.6 fL (9.4-12.4); Platelet Count 172 K/mcL (140-400); Red Blood Count 4.57 M/mcL (4.19-5.50); Red Cell Distribution Width 14.7 % (11.5-14.5); White Blood Count 7.9 K/mcL (4.3-11.1)
[2020-12-22 14:36] LABS: BUN/Creatinine Ratio 33 (6-26); Blood Urea Nitrogen 24 mg/dL (8-23); Carbon Dioxide 31 mEq/L (23-29); Chloride 105 mEq/L (98-107); Glucose 105 mg/dL (70-105); Osmolality,Calculated 296 (280-300); Potassium 4.9 mEq/L (3.5-5.1); Sodium 141 mEq/L (136-145); eGFR For African Americans > 60 (> 60); eGFR For Non-African Americans > 60 (> 60)
[2020-12-22] MEDS ORDERED: Acetaminophen 325 MG TABLET PO PRN (16:56)
[2020-12-22] MEDS ORDERED: Ondansetron 4 MG/2 ML VIAL IVP PRN (16:56)
[2020-12-22] MEDS ORDERED: Melatonin 3 MG TABLET PO PRN (16:56)
[2020-12-22] MEDS ORDERED: *HR* HYDROcodone/Acet 5/325 mg TABLET PO PRN (16:56)
[2020-12-22] MEDS ORDERED: Naloxone 0.4 MG/ML INJ IVP PRN (16:56)
[2020-12-22 17:37] LABS: Troponin I < 0.03 ng/mL (< 0.04)
[2020-12-22 17:41] LABS: INR 2.9; Prothrombin Time 32.8 Seconds (9.4-12.1)
[2020-12-22] MEDS ORDERED: Warfarin perPT PO PRN (18:00)
[2020-12-22] MEDS ORDERED: *HR* Warfarin 3 MG TABLET PO ONE (19:45)
[2020-12-22 20:02] LABS: Bilirubin,Urine Negative (Negative); Blood,Urine Negative (Negative); Clarity,Urine Clear (Clear); Color,Urine Yellow (Yellow); Glucose,Urine (UA) 100 mg/dL (Normal); Ketones,Urine Negative (Negative); Leukocyte Esterase,Urine Negative (Negative); Nitrite,Urine Negative (Negative); Protein,Urine 50 mg/dL (Neg-Trace); Specific Gravity,Urine 1.023 (1.010-1.025)
[2020-12-22 20:03] LABS: Bacteria,Urine None Seen per hpf (None-Few); RBC,Urine 0-3 per hpf (0-3); Squamous Epithelial Cell,Urine None Seen per hpf (None-Few); WBC,Urine 0-3 per hpf (0-3)
[2020-12-23 05:48] LABS: Basophils % 0.1 %; Eosinophils % 0.1 %; Hematocrit 38.5 % (37.5-50.1); Hemoglobin 12.4 g/dL (12.9-16.9); Immature Granulocytes % 0.1 % (0-4); Lymphocytes # 1.3 K/mcL (0.6-4.6); Lymphocytes % 19.3 %; Mean Corpuscular HGB Conc 32.2 g/dL (31.6-35.5); Mean Corpuscular Hemoglobin 29.4 pg (28.0-33.3); Mean Corpuscular Volume 91.2 fL (83.0-100.0); Mean Platelet Volume 10.3 fL (9.4-12.4); Monocytes % 13.8 %; Neutrophils # 4.6 K/mcL (1.6-8.9); Platelet Count 152 K/mcL (140-400); Red Blood Count 4.22 M/mcL (4.19-5.50); Red Cell Distribution Width 14.8 % (11.5-14.5); Segmented Neutrophils % 66.6 %; White Blood Count 6.9 K/mcL (4.3-11.1)
[2020-12-23 05:56] LABS: Prothrombin Time 33.4 Seconds (9.4-12.1)
[2020-12-23 06:09] LABS: Alanine Aminotransferase 5 Units/L (7-52); Albumin/Globulin Ratio 1.4 (1.1-2.2); Alkaline Phosphatase 73 Units/L (34-104); Aspartate Amino Transferase 12 Units/L (13-39); BUN/Creatinine Ratio 32 (6-26); Bilirubin,Total 1.7 mg/dL (0.3-1.0); Blood Urea Nitrogen 20 mg/dL (8-23); Calcium 9.5 mg/dL (8.6-10.3); Carbon Dioxide 26 mEq/L (23-29); Chloride 109 mEq/L (98-107); Globulin 2.9 g/dL (2.4-3.5); Glucose 108 mg/dL (70-105); Magnesium 2.1 mg/dL (1.6-2.6); Osmolality,Calculated 293 (280-300); Phosphorous 2.3 mg/dL (2.7-4.5); Sodium 140 mEq/L (136-145); Total Protein 6.9 g/dL (6.4-8.9); eGFR For African Americans > 60 (> 60); eGFR For Non-African Americans > 60 (> 60)
[2020-12-23] MEDS: Multivit/Ca/Min/Fe/FA 1 TAB TABLET PO SCH (08:59)
[2020-12-23] MEDS ORDERED: Finasteride 5 MG TABLET PO SCH (09:00)
[2020-12-23] MEDS ORDERED: DilTIAZem CD (24hr) 120 MG CAP.ER.24H PO SCH (09:00)
[2020-12-23 13:33] LABS: VBG HCO3 25 mEq/L (21-27); VBG PCO2 39 mmHg (41-51); VBG PH 7.41 pH Units (7.32-7.42); VBG PO2 68 mmHg (25-50)
[2020-12-23] MEDS: Latanoprost 2.5 ML BOTTLE BOTH EYES SCH (20:48)
[2020-12-23] MEDS: Dorzolamide OPTH 10 ML BOTTLE LEFT EYE SCH (20:49)
[2020-12-24 07:23] LABS: Hematocrit 38.7 % (37.5-50.1); Hemoglobin 12.4 g/dL (12.9-16.9); Mean Corpuscular Hemoglobin 29.3 pg (28.0-33.3); Mean Corpuscular Volume 91.5 fL (83.0-100.0); Mean Platelet Volume 10.4 fL (9.4-12.4); Platelet Count 142 K/mcL (140-400); Red Blood Count 4.23 M/mcL (4.19-5.50); Red Cell Distribution Width 14.6 % (11.5-14.5); White Blood Count 7.2 K/mcL (4.3-11.1)
[2020-12-24 07:30] LABS: INR 2.3; Prothrombin Time 25.8 Seconds (9.4-12.1)
[2020-12-24 07:39] LABS: BUN/Creatinine Ratio 36 (6-26); Blood Urea Nitrogen 22 mg/dL (8-23); Calcium 9.5 mg/dL (8.6-10.3); Carbon Dioxide 23 mEq/L (23-29); Chloride 107 mEq/L (98-107); Glucose 104 mg/dL (70-105); Osmolality,Calculated 292 (280-300); Phosphorous 2.6 mg/dL (2.7-4.5); Potassium 3.9 mEq/L (3.5-5.1); Sodium 139 mEq/L (136-145); eGFR For African Americans > 60 (> 60); eGFR For Non-African Americans > 60 (> 60)
[2020-12-24] MEDS: DilTIAZem CD (24hr) 120 MG CAP.ER.24H PO SCH (07:40)
[2020-12-24] MEDS: Finasteride 5 MG TABLET PO SCH (07:40)
[2020-12-24] MEDS: Multivit/Ca/Min/Fe/FA 1 TAB TABLET PO SCH (07:40)
[2020-12-24] MEDS: Dorzolamide OPTH 10 ML BOTTLE LEFT EYE SCH ×2 (07:41→20:14)
[2020-12-24 07:46] LABS: % Iron Saturation 10 % (20-55); Iron 33 mcg/dL (65-175); Transferrin 242 mg/dL (203-362)
[2020-12-24 08:01] LABS: Ferritin 127 ng/mL (20-250)
[2020-12-24 08:05] LABS: Folate 14.6 ng/mL (3.0-16.0)
[2020-12-24] MEDS ORDERED: Iron Sucrose Complex 400 MG in 0.9 % Sodium Chloride 250 ML IVPB ONE (09:09)
[2020-12-24] MEDS: lisinopriL 5 MG TABLET PO SCH (13:04)
[2020-12-24] MEDS ORDERED: *HR* Warfarin 3 MG TABLET PO ONE (18:00)
[2020-12-24] MEDS: Latanoprost 2.5 ML BOTTLE BOTH EYES SCH (20:14)
[2020-12-25 05:42] LABS: Hematocrit 38.8 % (37.5-50.1); Hemoglobin 12.5 g/dL (12.9-16.9); Mean Corpuscular HGB Conc 32.2 g/dL (31.6-35.5); Mean Corpuscular Hemoglobin 29.1 pg (28.0-33.3); Mean Corpuscular Volume 90.2 fL (83.0-100.0); Mean Platelet Volume 10.6 fL (9.4-12.4); Platelet Count 150 K/mcL (140-400); Red Cell Distribution Width 14.6 % (11.5-14.5); White Blood Count 6.7 K/mcL (4.3-11.1)
[2020-12-25 05:55] LABS: Prothrombin Time 22.9 Seconds (9.4-12.1)
[2020-12-25 05:59] LABS: BUN/Creatinine Ratio 29 (6-26); Blood Urea Nitrogen 20 mg/dL (8-23); Calcium 9.3 mg/dL (8.6-10.3); Carbon Dioxide 26 mEq/L (23-29); Chloride 107 mEq/L (98-107); Glucose 98 mg/dL (70-105); Magnesium 2.1 mg/dL (1.6-2.6); Osmolality,Calculated 289 (280-300); Phosphorous 2.7 mg/dL (2.7-4.5); Potassium 3.8 mEq/L (3.5-5.1); Sodium 138 mEq/L (136-145); eGFR For African Americans > 60 (> 60); eGFR For Non-African Americans > 60 (> 60)
[2020-12-25] MEDS: Cyanocobalamin (B-12) 1,000 MCG TABLET PO SCH (07:49)
[2020-12-25] MEDS: DilTIAZem CD (24hr) 120 MG CAP.ER.24H PO SCH (07:49)
[2020-12-25] MEDS: Multivit/Ca/Min/Fe/FA 1 TAB TABLET PO SCH (07:49)
[2020-12-25] MEDS: lisinopriL 5 MG TABLET PO SCH (07:50)
[2020-12-25] MEDS: Finasteride 5 MG TABLET PO SCH (07:50)
[2020-12-25] MEDS: Dorzolamide OPTH 10 ML BOTTLE LEFT EYE SCH ×2 (07:52→20:01)
[2020-12-25] MEDS ORDERED: *HR* Warfarin 3 MG TABLET PO ONE (18:00)
[2020-12-25] MEDS: Latanoprost 2.5 ML BOTTLE BOTH EYES SCH (20:02)
[2020-12-26 02:20] LABS: Hematocrit 39.8 % (37.5-50.1); Hemoglobin 12.7 g/dL (12.9-16.9); Mean Corpuscular HGB Conc 31.9 g/dL (31.6-35.5); Mean Corpuscular Hemoglobin 29.4 pg (28.0-33.3); Mean Corpuscular Volume 92.1 fL (83.0-100.0); Mean Platelet Volume 10.5 fL (9.4-12.4); Platelet Count 169 K/mcL (140-400); Red Blood Count 4.32 M/mcL (4.19-5.50); Red Cell Distribution Width 14.5 % (11.5-14.5); White Blood Count 7.5 K/mcL (4.3-11.1)
[2020-12-26 02:31] LABS: INR 2.1; Prothrombin Time 23.5 Seconds (9.4-12.1)
[2020-12-26 02:35] LABS: BUN/Creatinine Ratio 40 (6-26); Blood Urea Nitrogen 23 mg/dL (8-23); Carbon Dioxide 22 mEq/L (23-29); Chloride 108 mEq/L (98-107); Glucose 107 mg/dL (70-105); Osmolality,Calculated 288 (280-300); Phosphorous 2.5 mg/dL (2.7-4.5); Potassium 3.6 mEq/L (3.5-5.1); Sodium 137 mEq/L (136-145); eGFR For African Americans > 60 (> 60); eGFR For Non-African Americans > 60 (> 60)
[2020-12-26] MEDS: Cyanocobalamin (B-12) 1,000 MCG TABLET PO SCH (07:41)
[2020-12-26] MEDS: lisinopriL 5 MG TABLET PO SCH (07:41)
[2020-12-26] MEDS: DilTIAZem CD (24hr) 120 MG CAP.ER.24H PO SCH (07:42)
[2020-12-26] MEDS: Finasteride 5 MG TABLET PO SCH (07:42)
[2020-12-26] MEDS: Dorzolamide OPTH 10 ML BOTTLE LEFT EYE SCH ×2 (07:42→20:20)
[2020-12-26] MEDS: Multivit/Ca/Min/Fe/FA 1 TAB TABLET PO SCH (07:42)
[2020-12-26] MEDS ORDERED: *HR* Warfarin 3 MG TABLET PO ONE (18:00)
[2020-12-26] MEDS: Latanoprost 2.5 ML BOTTLE BOTH EYES SCH (20:21)
[2020-12-27 06:44] LABS: INR 1.9; Prothrombin Time 21.6 Seconds (9.4-12.1)
[2020-12-27 07:21] VITALS: BP 124/72
[2020-12-27] MEDS: Finasteride 5 MG TABLET PO SCH (07:49)
[2020-12-27] MEDS: Multivit/Ca/Min/Fe/FA 1 TAB TABLET PO SCH (07:49)
[2020-12-27] MEDS: Cyanocobalamin (B-12) 1,000 MCG TABLET PO SCH (07:50)
[2020-12-27] MEDS: lisinopriL 5 MG TABLET PO SCH (07:50)
[2020-12-27] MEDS: DilTIAZem CD (24hr) 120 MG CAP.ER.24H PO SCH (07:50)
[2020-12-27] MEDS: Dorzolamide OPTH 10 ML BOTTLE LEFT EYE SCH (07:51)
[2020-12-27 10:45] LABS: Adenovirus Not Detected (Not Detect); Bordetella Pertussis Not Detected (Not Detect); Chlamydophila pneumoniae Not Detected (Not Detect); Coronavirus 229E Not Detected (Not Detect); Coronavirus HKU1 Not Detected (Not Detect); Coronavirus NL63 Not Detected (Not Detect); Coronavirus OC43 Not Detected (Not Detect); Human Metapneumovirus Not Detected (Not Detect); Human Rhinovirus/Enterovirus Not Detected (Not Detect); Influenza A Subtype 2009 H1 Not Detected (Not Detect); Influenza B Not Detected (Not Detect); Mycoplasma pneumoniae Not Detected (Not Detect); Parainfluenza Virus 1 Not Detected (Not Detect); Parainfluenza Virus 2 Not Detected (Not Detect); Parainfluenza Virus 3 Not Detected (Not Detect); Parainfluenza Virus 4 Not Detected (Not Detect); Respiratory Syncytial Virus Not Detected (Not Detect); SARS-CoV-2 Not Detected (Not Detect)
[2020-12-27] MEDS ORDERED: *HR* Warfarin 3 MG TABLET PO ONE (18:00)
== END 2020-12-27 13:47 ==
LOC: 3ANU 13:22 → EMEROOARM 13:22 → SUATTDRO 16:47 → 3ANU 18:32
PROVIDERS: ADMIT Internal Medicine; ATTEND Family Medicine

== ENCOUNTER 2021-05-07 14:29 | Inpatient (IN) ==
[2021-05-07] MEDS ORDERED: *HR* FentaNYL (PF) 100 MCG/2 ML VIAL IVP ONE (14:41)
[2021-05-07 15:15] LABS: Basophils % 0.3 %; Eosinophils % 0.7 %; Hemoglobin 12.8 g/dL (12.9-16.9); Immature Granulocytes % 0.7 % (0-4); Lymphocytes # 1.8 K/mcL (0.6-4.6); Lymphocytes % 30.8 %; Mean Corpuscular Hemoglobin 28.6 pg (28.0-33.3); Mean Corpuscular Volume 89.3 fL (83.0-100.0); Mean Platelet Volume 10.1 fL (9.4-12.4); Monocytes # 0.5 K/mcL (0.0-1.3); Monocytes % 8.2 %; Neutrophils # 3.5 K/mcL (1.6-8.9); Platelet Count 165 K/mcL (140-400); Red Blood Count 4.48 M/mcL (4.19-5.50); Red Cell Distribution Width 14.6 % (11.5-14.5); Segmented Neutrophils % 59.3 %; White Blood Count 5.9 K/mcL (4.3-11.1)
[2021-05-07 15:24] LABS: INR 3.5; Prothrombin Time 39.2 Seconds (9.4-12.1)
[2021-05-07 15:43] LABS: BUN/Creatinine Ratio 28 (6-26); Blood Urea Nitrogen 22 mg/dL (8-23); Calcium 9.6 mg/dL (8.6-10.3); Carbon Dioxide 31 mEq/L (23-29); Chloride 106 mEq/L (98-107); Glucose 97 mg/dL (70-105); Osmolality,Calculated 299 (280-300); Potassium 3.9 mEq/L (3.5-5.1); Sodium 143 mEq/L (136-145); eGFR For African Americans > 60 (> 60); eGFR For Non-African Americans > 60 (> 60)
[2021-05-07] MEDS ORDERED: Acetaminophen 325 MG TABLET PO PRN (16:39)
[2021-05-07] MEDS ORDERED: Naloxone 0.4 MG/ML INJ IVP PRN (16:39)
[2021-05-07] MEDS ORDERED: Ondansetron ODT 4 MG TAB.RAPDIS SL PRN (16:39)
[2021-05-07] MEDS ORDERED: *HR* Phytonadione 10 MG/ML AMPUL SQ ONE (17:51)
[2021-05-07] MEDS: *HR* OxyCODONE Immed Rel 5 MG TABLET PO PRN (21:23)
[2021-05-08 04:22] LABS: Basophils % 0.1 %; Eosinophils # 0.1 K/mcL (0.0-0.6); Eosinophils % 1.1 %; Hematocrit 39.7 % (37.5-50.1); Hemoglobin 13.2 g/dL (12.9-16.9); Immature Granulocytes % 0.3 % (0-4); Lymphocytes # 1.5 K/mcL (0.6-4.6); Lymphocytes % 14.7 %; Mean Corpuscular HGB Conc 33.2 g/dL (31.6-35.5); Mean Corpuscular Hemoglobin 29.5 pg (28.0-33.3); Mean Corpuscular Volume 88.6 fL (83.0-100.0); Mean Platelet Volume 10.8 fL (9.4-12.4); Monocytes # 0.5 K/mcL (0.0-1.3); Neutrophils # 8.3 K/mcL (1.6-8.9); Platelet Count 163 K/mcL (140-400); Red Blood Count 4.48 M/mcL (4.19-5.50); Red Cell Distribution Width 14.6 % (11.5-14.5); Segmented Neutrophils % 78.8 %
[2021-05-08 04:24] LABS: White Blood Count 10.5 K/mcL (4.3-11.1)
[2021-05-08 04:26] LABS: INR 3.3; Prothrombin Time 36.6 Seconds (9.4-12.1)
[2021-05-08 04:34] LABS: BUN/Creatinine Ratio 31 (6-26); Blood Urea Nitrogen 23 mg/dL (8-23); Calcium 9.2 mg/dL (8.6-10.3); Carbon Dioxide 25 mEq/L (23-29); Chloride 107 mEq/L (98-107); Glucose 106 mg/dL (70-105); Osmolality,Calculated 294 (280-300); Sodium 140 mEq/L (136-145); eGFR For African Americans > 60 (> 60); eGFR For Non-African Americans > 60 (> 60)
[2021-05-08] MEDS ORDERED: *HR* Phytonadione 10 MG/ML AMPUL SQ ONE (09:03)
[2021-05-08] MEDS ORDERED: Ringers Solution, Lactated 1,000 ML IVC SCH (13:00)
[2021-05-08] MEDS ORDERED: DilTIAZem CD (24hr) 120 MG CAP.ER.24H PO SCH (13:00)
[2021-05-08 16:33] LABS: INR 2.2; Prothrombin Time 24.6 Seconds (9.4-12.1)
[2021-05-08] MEDS: DilTIAZem CD (24hr) 120 MG CAP.ER.24H PO SCH (17:56)
[2021-05-08] MEDS: Latanoprost 2.5 ML BOTTLE LEFT EYE SCH (20:23)
[2021-05-08] MEDS: *HR* OxyCODONE Immed Rel 5 MG TABLET PO PRN (22:44)
[2021-05-09 05:42] LABS: Hematocrit 39.6 % (37.5-50.1); Hemoglobin 13.1 g/dL (12.9-16.9); Mean Corpuscular HGB Conc 33.1 g/dL (31.6-35.5); Mean Corpuscular Hemoglobin 29.5 pg (28.0-33.3); Mean Corpuscular Volume 89.2 fL (83.0-100.0); Mean Platelet Volume 10.6 fL (9.4-12.4); Platelet Count 138 K/mcL (140-400); Red Blood Count 4.44 M/mcL (4.19-5.50); Red Cell Distribution Width 14.6 % (11.5-14.5); White Blood Count 10.7 K/mcL (4.3-11.1)
[2021-05-09 05:45] LABS: INR 1.5; Prothrombin Time 17.2 Seconds (9.4-12.1)
[2021-05-09] MEDS: Multivit/Ca/Min/Fe/FA 1 TAB TABLET PO SCH (09:03)
[2021-05-09] MEDS: lisinopriL 5 MG TABLET PO SCH (09:03)
[2021-05-09] MEDS: DilTIAZem CD (24hr) 120 MG CAP.ER.24H PO SCH (09:03)
[2021-05-09] MEDS ORDERED: TOTAL JOINT MIXTURE (100ML) INTRAART ONE (10:00)
[2021-05-09] MEDS ORDERED: Povidone-Iodine 45 ML, Sodium Chloride IRRigation 1,000 ML IR ONE (10:00)
[2021-05-09 10:06] LABS: Adenovirus Not Detected (Not Detect); Bordetella Pertussis Not Detected (Not Detect); Chlamydophila pneumoniae Not Detected (Not Detect); Coronavirus 229E Not Detected (Not Detect); Coronavirus HKU1 Not Detected (Not Detect); Coronavirus NL63 Not Detected (Not Detect); Coronavirus OC43 Not Detected (Not Detect); Human Metapneumovirus Not Detected (Not Detect); Human Rhinovirus/Enterovirus Not Detected (Not Detect); Influenza A Subtype 2009 H1 Not Detected (Not Detect); Influenza B Not Detected (Not Detect); Mycoplasma pneumoniae Not Detected (Not Detect); Parainfluenza Virus 1 Not Detected (Not Detect); Parainfluenza Virus 2 Not Detected (Not Detect); Parainfluenza Virus 3 Not Detected (Not Detect); Parainfluenza Virus 4 Not Detected (Not Detect); Respiratory Syncytial Virus Not Detected (Not Detect); SARS-CoV-2 Not Detected (Not Detect)
[2021-05-09] MEDS: 0.9 % Sodium Chloride 1,000 ML IVC SCH ×2 (10:59→23:49)
[2021-05-09] MEDS ORDERED: *HR* FentaNYL (PF) 100 MCG/2 ML VIAL ONE (12:20)
[2021-05-09] MEDS ORDERED: Lidocaine -MPF 2% 2 ML VIAL ONE (12:21)
[2021-05-09] MEDS ORDERED: *HR* Propofol 200 MG/20 ML VIAL IVP ONE (12:21)
[2021-05-09] MEDS ORDERED: Ondansetron 4 MG/2 ML VIAL ONE (12:21)
[2021-05-09] MEDS ORDERED: *HR* Succinylcholine 200 MG/10 ML VIAL IVP ONE (12:22)
[2021-05-09] MEDS ORDERED: *HR* Rocuronium Bromide 50 MG/5 ML VIAL ONE (12:22)
[2021-05-09] MEDS ORDERED: Lidocaine -MPF 4% 5 ML AMPUL ONE (12:22)
[2021-05-09] MEDS ORDERED: *HR* HYDROmorphone PF 0.5 MG/0.5 ML SYRINGE IVP PRN (12:41)
[2021-05-09] MEDS ORDERED: *HR* Remifentanil 1 MG VIAL IVP ONE (12:48)
[2021-05-09] MEDS ORDERED: Vancomycin 1,000 MG VIAL ONE (13:02)
[2021-05-09] MEDS ORDERED: Tranexamic Acid 1,000 MG/10 ML VIAL ONE (14:01)
[2021-05-09] MEDS: Ringers Solution, Lactated 1,000 ML IVC SCH (19:01)
[2021-05-09] MEDS: Latanoprost 2.5 ML BOTTLE LEFT EYE SCH (20:36)
[2021-05-09] MEDS: CeFAZolin 2 GM/120 ML BAG IVPB SCH (23:49)
[2021-05-10 02:05] LABS: Basophils % 0.1 %; Eosinophils % 0.1 %; Hemoglobin 11.9 g/dL (12.9-16.9); Immature Granulocytes % 0.3 % (0-4)
[2021-05-10 02:07] LABS: Hematocrit 37.2 % (37.5-50.1); Immature Platelets 6.5 % (1.1-6.1); Lymphocytes # 0.6 K/mcL (0.6-4.6); Lymphocytes % 5.7 %; Mean Corpuscular Hemoglobin 29.5 pg (28.0-33.3); Mean Corpuscular Volume 92.1 fL (83.0-100.0); Mean Platelet Volume 11.4 fL (9.4-12.4); Monocytes # 0.7 K/mcL (0.0-1.3); Monocytes % 6.8 %; Neutrophils # 8.4 K/mcL (1.6-8.9); Platelet Count 117 K/mcL (140-400); Red Blood Count 4.04 M/mcL (4.19-5.50); Red Cell Distribution Width 14.7 % (11.5-14.5); White Blood Count 9.7 K/mcL (4.3-11.1)
[2021-05-10 02:27] LABS: BUN/Creatinine Ratio 39 (6-26); Blood Urea Nitrogen 29 mg/dL (8-23); Calcium 8.6 mg/dL (8.6-10.3); Carbon Dioxide 20 mEq/L (23-29); Chloride 109 mEq/L (98-107); Glucose 126 mg/dL (70-105); Osmolality,Calculated 293 (280-300); Potassium 4.3 mEq/L (3.5-5.1); Sodium 138 mEq/L (136-145); eGFR For African Americans > 60 (> 60); eGFR For Non-African Americans > 60 (> 60)
[2021-05-10] MEDS: Ringers Solution, Lactated 1,000 ML IVC SCH (05:39)
[2021-05-10] MEDS: CeFAZolin 2 GM/120 ML BAG IVPB SCH (09:00)
[2021-05-10] MEDS: *HR* HYDROcodone/Acet 5/325 mg TABLET PO PRN (10:21)
[2021-05-10] MEDS: DilTIAZem CD (24hr) 120 MG CAP.ER.24H PO SCH (10:21)
[2021-05-10] MEDS: lisinopriL 5 MG TABLET PO SCH (10:22)
[2021-05-10] MEDS: Multivit/Ca/Min/Fe/FA 1 TAB TABLET PO SCH (10:22)
[2021-05-10 13:29] LABS: INR 1.4; Prothrombin Time 15.6 Seconds (9.4-12.1)
[2021-05-10] MEDS ORDERED: *HR* Warfarin 3 MG TABLET PO ONE (18:00)
[2021-05-10] MEDS ORDERED: Warfarin perPT PO PRN (18:00)
[2021-05-10 20:27] LABS: Bilirubin,Urine Negative (Negative); Blood,Urine Moderate (Negative); Clarity,Urine Clear (Clear); Color,Urine Yellow (Yellow); Glucose,Urine (UA) Normal (Normal); Ketones,Urine Negative (Negative); Leukocyte Esterase,Urine Moderate (Negative); Mucus,Urine Few per lpf (None-Few); Nitrite,Urine Negative (Negative); Protein,Urine 30 mg/dL (Neg-Trace); RBC,Urine 15-30 per hpf (0-3); Specific Gravity,Urine 1.028 (1.010-1.025); Squamous Epithelial Cell,Urine Few per hpf (None-Few); Urobilinogen,Urine Normal (Normal)
[2021-05-10] MEDS: Latanoprost 2.5 ML BOTTLE LEFT EYE SCH (21:01)
[2021-05-11] MEDS ORDERED: *HR* Promethazine 25 MG/ML VIAL IM PRN (00:22)
[2021-05-11] MEDS ORDERED: Pantoprazole 40 MG VIAL IVP SCH (00:30)
[2021-05-11 03:45] LABS: Basophils % 0.1 %; Eosinophils # 0.1 K/mcL (0.0-0.6); Eosinophils % 1.5 %; Hemoglobin 11.3 g/dL (12.9-16.9); Immature Granulocytes % 0.2 % (0-4); Lymphocytes # 0.8 K/mcL (0.6-4.6); Lymphocytes % 7.9 %; Mean Corpuscular HGB Conc 32.3 g/dL (31.6-35.5); Mean Corpuscular Hemoglobin 28.8 pg (28.0-33.3); Mean Corpuscular Volume 89.3 fL (83.0-100.0); Mean Platelet Volume 11.4 fL (9.4-12.4); Monocytes % 10.5 %; Neutrophils # 7.6 K/mcL (1.6-8.9); Platelet Count 147 K/mcL (140-400); Red Blood Count 3.92 M/mcL (4.19-5.50); Red Cell Distribution Width 14.6 % (11.5-14.5); Segmented Neutrophils % 79.8 %; White Blood Count 9.5 K/mcL (4.3-11.1)
[2021-05-11 03:57] LABS: BUN/Creatinine Ratio 53 (6-26); Blood Urea Nitrogen 35 mg/dL (8-23); Calcium 8.6 mg/dL (8.6-10.3); Carbon Dioxide 23 mEq/L (23-29); Chloride 105 mEq/L (98-107); Glucose 117 mg/dL (70-105); Osmolality,Calculated 291 (280-300); Potassium 4.1 mEq/L (3.5-5.1); Sodium 136 mEq/L (136-145); eGFR For African Americans > 60 (> 60); eGFR For Non-African Americans > 60 (> 60)
[2021-05-11 04:05] LABS: INR 1.4; Prothrombin Time 15.6 Seconds (9.4-12.1)
[2021-05-11] MEDS: Multivit/Ca/Min/Fe/FA 1 TAB TABLET PO SCH (09:31)
[2021-05-11] MEDS: DilTIAZem CD (24hr) 120 MG CAP.ER.24H PO SCH (09:32)
[2021-05-11] MEDS: *HR* HYDROcodone/Acet 5/325 mg TABLET PO PRN (09:43)
[2021-05-11] MEDS: Sennosides/Docusate Sodium TABLET PO SCH ×2 (09:51→20:41)
[2021-05-11] MEDS: lisinopriL 5 MG TABLET PO SCH (11:18)
[2021-05-11] MEDS ORDERED: Metoclopramide 10 MG/2 ML VIAL IVP ONE (12:27)
[2021-05-11] MEDS ORDERED: Pantoprazole 40 MG in 0.9 % Sodium Chloride Mini Bag 100 ML IVC SCH (12:30)
[2021-05-11] MEDS ORDERED: polyethylene glycoL 3350 17 GM POWD.PACK PO PRN (14:49)
[2021-05-11] MEDS ORDERED: *HR* Propofol 200 MG/20 ML VIAL IVP ONE (17:43)
[2021-05-11] MEDS ORDERED: *HR* Warfarin 3 MG TABLET PO ONE (18:00)
[2021-05-11] MEDS ORDERED: Lidocaine -MPF 2% 5 ML VIAL ONE (18:04)
[2021-05-11] MEDS: Pantoprazole 40 MG VIAL IVP SCH (20:16)
[2021-05-11] MEDS: Latanoprost 2.5 ML BOTTLE LEFT EYE SCH (20:41)
[2021-05-12 07:49] VITALS: BP 140/76; PULSE 82; TEMP 98.5; O2SAT 99
[2021-05-12 08:27] LABS: Hematocrit 32.8 % (37.5-50.1); Hemoglobin 10.6 g/dL (12.9-16.9); Mean Corpuscular HGB Conc 32.3 g/dL (31.6-35.5); Mean Corpuscular Hemoglobin 29.3 pg (28.0-33.3); Mean Corpuscular Volume 90.6 fL (83.0-100.0); Mean Platelet Volume 11.5 fL (9.4-12.4); Platelet Count 159 K/mcL (140-400); Red Blood Count 3.62 M/mcL (4.19-5.50); Red Cell Distribution Width 14.7 % (11.5-14.5); White Blood Count 7.3 K/mcL (4.3-11.1)
[2021-05-12] MEDS: DilTIAZem CD (24hr) 120 MG CAP.ER.24H PO SCH (08:28)
[2021-05-12] MEDS: lisinopriL 5 MG TABLET PO SCH (08:28)
[2021-05-12] MEDS: Sennosides/Docusate Sodium TABLET PO SCH (08:28)
[2021-05-12] MEDS: Multivit/Ca/Min/Fe/FA 1 TAB TABLET PO SCH (08:28)
[2021-05-12] MEDS: Pantoprazole 40 MG VIAL IVP SCH (08:29)
[2021-05-12 08:30] LABS: INR 1.4; Prothrombin Time 16.4 Seconds (9.4-12.1)
[2021-05-12 11:48] LABS: Adenovirus Not Detected (Not Detect); Bordetella Pertussis Not Detected (Not Detect); Chlamydophila pneumoniae Not Detected (Not Detect); Coronavirus 229E Not Detected (Not Detect); Coronavirus HKU1 Not Detected (Not Detect); Coronavirus NL63 Not Detected (Not Detect); Coronavirus OC43 Not Detected (Not Detect); Human Metapneumovirus Not Detected (Not Detect); Human Rhinovirus/Enterovirus Not Detected (Not Detect); Influenza A Subtype 2009 H1 Not Detected (Not Detect); Influenza B Not Detected (Not Detect); Mycoplasma pneumoniae Not Detected (Not Detect); Parainfluenza Virus 1 Not Detected (Not Detect); Parainfluenza Virus 2 Not Detected (Not Detect); Parainfluenza Virus 3 Not Detected (Not Detect); Parainfluenza Virus 4 Not Detected (Not Detect); Respiratory Syncytial Virus Not Detected (Not Detect); SARS-CoV-2 Not Detected (Not Detect)
[2021-05-12] MEDS ORDERED: *HR* Warfarin 3 MG TABLET PO ONE (18:00)
== END 2021-05-12 18:12 | DRG 522 ==
LOC: EMEROOARM 14:29 → 3NENU 14:29 → SUATTDRO 20:05 → 3NENU 20:51
PROVIDERS: ADMIT Student in an Organized Health Care Education/Training Program; ATTEND Student in an Organized Health Care Education/Training Program